=== PATIENT | female | born 1990 | race Caucasian/White ===

== ENCOUNTER 2024-12-02 20:42 | Emergency (ER) | payer BC, SELFPAY ==
[2024-12-02 20:54] VITALS: BP 115/77; PULSE 78; RESP 18; TEMP 37.1; O2SAT 97; BMI 30.7
--- NOTE | 2024-12-02 23:05 | PC.NURSE ---
33 yo F presents to ED r/t +laceration on right hand, pt states that she was pushing her garbage down and was cut by a razor blade, bleeding controlled, arrived to ED with lac dressed, patieht is otherwise stable, A&OX4, VSS, respirations even and unlabored, denies any other complaints including numbness/tingling, able to freely move extremity, spouse is at bedside, WTBS
--- NOTE | 2024-12-03 01:15 | ED_ITS ---
HPI - General Adult General Chief complaint: Wound/Laceration Stated complaint: right hand laceration Time Seen by Provider: 12/03/24 00:20 Source: patient Limitations: no limitations History of Present Illness ED Provider: Violet Pruett PA-C HPI narrative: 33-year-old female presents with right hand laceration. Patient states she was throwing her trash out, she was cut by a safety razor blade in the process. Tetanus up-to-date, bleeding currently controlled. Related Data Allergies Allergy/AdvReac Type Severity Reaction Status Date / Time Sulfa (Sulfonamide Allergy Unknown Verified 12/02/24 20:56 Antibiotics) Review of Systems Review of Systems: Yes all other systems are reviewed and are negative Constitutional: Constitutional: Denies fatigue and Denies fever(s) Musculoskeletal: Musculoskeletal: Denies arthralgias and Denies joint swelling Endocrine: Endocrine: Denies fatigue PMFSH Past Medical History Attestation statement: The following information was validated with the patient. Social History Social History Smoked in Last 30 Days: No Use of substances other than those prescribed or required for medical reasons: No Advance Directives: No Advance Directives Information Provided: Yes Do you have a plan to hurt others: No Plan Patient : Yes (9 mos ) Physical Exam ED Vital Signs: Vital Signs - 24 hr 12/02/24 20:54 12/03/24 01:36 Temperature 98.7 F 98.7 F Pulse Rate 78 78 Respiratory Rate 18 18 Blood Pressure 115/77 115/77 Pulse Oximetry 97 97 Oxygen Delivery Method Room Air Room Air BMI result Body Mass Index 30.7 Const Other: Alert well-appearing Orientation/consciousness: patient oriented x3 Resp Effort & Inspection: normal respiratory effort Cardio Other: Normal peripheral perfusion Skin Other: Warm dry no rash Neuro General: patient oriented x3, gait normal, no focal motor deficits and CN's II- XI intact bilaterally Extrem Other: 3 cm linear laceration over palm of right hand inferior to the 2nd and 3rd digits not bleeding, is superficial Psych Other: Cooperative, anxious Procedures Laceration Laceration 1: Site: hand Side (If applicable): right Size (cm): 3 Description: linear Depth: simple, single layer Local Anesthetic: lidocaine 1% and with epi Amount of anesthesia used (mL): 3 Pre-repair: irrigated extensively Skin layer closed with: nylon Size (cm): 5-0 Number of sutures: 7 Technique: simple, interrupted Medical Decision Making Medical Decision Making MDM Narrative: 33-year-old female presents with right hand laceration. Patient states she was throwing her trash out, she was cut by a safety razor blade in the process. Tetanus up-to-date, bleeding currently controlled. No chronic issues History: Per patient I have considered the following differential diagnoses: Laceration, abrasion, excoriation, contusion Plan: Patient has a simple laceration and we will repair it no imaging or labs required Discharge Plan Discharge Clinical Impression: Laceration of hand, right Patient Disposition: Home, Self-Care Instructions: Laceration (ED) Additional Instructions: 7 stitches were used to close the wound. See home care instructions. They can be removed in 7 days. Watch for signs of infection which would include redness, swelling, pus draining from the site, red line tracking up your arm into your armpit, or fever. If you develop any of these symptoms, seek medical attention. Stand Alone Forms: Work/School Release Interventions: ED Discharge Assessment Last Done: 12/03/24 01:36 Discharge Date/Time: 12/03/24 01:37 Print Language: Danish
[2024-12-03 01:36] VITALS: BP 115/77; PULSE 78; RESP 18; TEMP 37.1; O2SAT 97
== END 2024-12-03 01:37 | disposition home or self-care (01) ==
PROVIDERS: Emergency Provider Emergency Medicine
DX: S61.411A Laceration without foreign body of right hand, initial encounter (principal); W27.8XXA Contact with other nonpowered hand tool, initial encounter; Y93.E9 Activity, other interior property and clothing maintenance; Y92.017 Garden or yard in single-family (private) house as the place of occurrence of the external cause; Y99.9 Unspecified external cause status
CPT/HCPCS: 12002; 99284